=== PATIENT | female | born 1990 | race Caucasian/White ===

== ENCOUNTER 2022-12-12 12:49 | Emergency (ER) | payer BC ==
[~2022-12-12] VITALS: Ht 162.6 cm; Wt 74.8 kg
[2022-12-12] MEDS ORDERED: MECLIZINE HCL 12.5 MG TAB PO ONE (14:00)
[2022-12-12] MEDS ORDERED: MECLIZINE HCL 12.5 MG TAB ONE (14:15)
[2022-12-12] MEDS ORDERED: KETOROLAC TROMETHAMINE 30 MG/ML VIAL IM ONE (14:45)
[2022-12-12] MEDS ORDERED: KETOROLAC TROMETHAMINE 30 MG/ML VIAL ONE (15:05)
== END 2022-12-12 15:19 | disposition home or self-care (01) ==
LOC: ER 13:00
DX: R42 Dizziness and giddiness (principal); R51.9 Headache, unspecified; R11.2 Nausea with vomiting, unspecified
CPT/HCPCS: 93005; 99282; J1885; J8597